=== PATIENT | female | born 1980 | race Caucasian/White ===

== ENCOUNTER 2022-12-04 08:02 | Emergency (ER) | payer OTHER, SELFPAY ==
--- NOTE | 2022-12-04 08:04 | ED.URI ---
HPI - URI/Sore Throat General Chief Complaint: Upper Respiratory Infection Stated Complaint: Sore Throat Time Seen by Provider: 12/04/22 08:04 Source: patient Mode of arrival: ambulatory Limitations: no limitations History of Present Illness HPI Narrative: Is a 42-year-old female who presents with fevers and sore throat since yesterday. States her temperature at home was 102.3. Has been alternating tylenol and aleve for fever and pain control, along with throat spray. States it has not helped with pain and fever has still been 101. Patient denies any congestion, cough, SOB, runny nose and ear pain. 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 Related Data Home Medications Medication Instructions Recorded Confirmed norgestrel 0.3 mg-ethinyl 1 tablet PO DAILY 12/04/22 12/04/22 estradiol 30 mcg tablet (Alhaji (28)) Allergies Allergy/AdvReac Type Severity Reaction Status Date / Time No Known Allergies Allergy Verified 12/04/22 08:07 Review of Systems Review of Systems: All systems reviewed & are unremarkable except as noted in HPI and below Constitutional: Constitutional: Denies body ache(s), Reports fever(s), Denies headache(s), Denies malaise and Denies weakness Eyes: Eyes: Denies loss of vision ENT: Denies otalgia, Denies headache(s), Denies nasal congestion, Denies sinus pain and Reports sore throat Cardiovascular: Cardiovascular: Denies chest pain, Denies irregular heart rhythm and Denies dyspnea Respiratory: Respiratory: Denies cough and Denies dyspnea Gastrointestinal: Gastrointestinal: Denies abdominal pain, Denies melena, Denies hematochezia, Denies diarrhea, Denies nausea and Denies vomiting Musculoskeletal: Musculoskeletal: Denies back pain, Denies myalgias and Denies arthralgias Integumentary/Breasts: Skin/Breast: Denies pruritus and Denies rash Neurologic: Denies headache(s), Denies loss of vision and Denies weakness Psychiatric: Psychiatric: Reports no additional psychiatric complaints [facility] Social History Social History (System 10/13/22 @ 15:07 by Srikanth Domínguez) Smoking status: Never smoker Alcohol intake: current Comments At time of signature, agree with nursing past medical, surgical, social and family history. There is no relevant family history pertinent to the presenting complaint. Exam Const: General: cooperative, healthy appearing, comfortable, no acute distress and well nourished Nutritional Appearance: well nourished Orientation/consciousness: patient oriented x3 Limitations: no limitations HENMT: Head: normal to inspection, normocephalic and atraumatic Ears: hearing grossly normal bilaterally, external ears normal and TM's normal bilaterally Face/Nose/Sinus: Normal external nose present, Normal nares present, Normal nasal mucous membranes and turbinates present, Normal septum present, normal facial exam, sinuses nontender and face symmetric Face and sinus: normal facial exam, sinuses nontender and face symmetric Mouth: Yes Normal oral and palatal mucosa present, Yes lip normal and Yes moist mucous membranes Teeth and gingiva: dentition normal Throat: uvula midline, abnormal tonsil bilateral erythema, exudates, hypertrophy 3+ and pitting, posterior oropharynx abnormal edema, erythema and exudates and postnasal drainage Eyes: General: appearance normal, both eyes and all related structures Alignment and Position: alignment normal and position normal Periorbital: periorbital findings normal Eyelids: eyelids normal Pupils: Equal, round and reactive pupils present Neck: Neck: normal visual inspection, full ROM and supple Chest: Chest palpation & inspection: normal inspection of the chest and normal palpation of entire chest wall Resp: Effort & Inspection: normal respiratory effort and able to speak in complete sentences Auscultation: clear to auscultation bilaterally, no crackles, no rales, no rhonchi and no wheezes Cardio: Rate: regular rate
[2022-12-04 08:19] VITALS: BP 131/76; PULSE 98; RESP 18; TEMP 36.5; O2SAT 98
== END 2022-12-04 08:32 | disposition home or self-care (01) ==
PROVIDERS: Emergency Provider Nurse Practitioner Family; PCP Physician Assistant Medical
DX: J02.0 Streptococcal pharyngitis (principal)
CPT/HCPCS: 87880; 99213; G0463

== ENCOUNTER 2023-12-22 12:36 | Outpatient (CLI) | payer OTHER, SELFPAY ==
--- NOTE | ~2023-12-22 | US_ITS ---
EXAMINATION: US pelvic complete w TV DATE: 12/22/2023 13:04 INDICATION: Complex ovarian cysts. Comparison:No prior studies for comparison. TECHNIQUE: Multiple transabdominal and endovaginal sonographic images of the pelvis performed. FINDINGS: The uterus measures 7.5 x 3.8 x 3.1 cm. The endometrial complex measures 2 mm. The right ovary measures 2.3 x 2 x 2.8 cm and the left ovary measures 4.2 x 3.8 x 3.8 cm. There is a hyperechoic mass of the left ovary measuring approximately 3.3 x 3.1 cm. There are small follicles in each ovary. Normal doppler signal in both ovaries. There is no free fluid in the pelvis. There are no abnormal masses seen on either side. IMPRESSION: 1. Hyperechoic left ovarian mass measuring 3.3 cm, possibly a dermoid. Recommend correlation with CT or MRI pelvis with contrast. Reviewed, dictated and finalized at location A. IMPRESSION: 1. Hyperechoic left ovarian mass measuring 3.3 cm, possibly a dermoid. Recommen d correlation with CT or MRI pelvis with contrast.
== END 2023-12-22 12:37 ==
PROVIDERS: PCP Internal Medicine Interventional Cardiology; Visit Provider Internal Medicine Interventional Cardiology
DX: N83.299 Other ovarian cyst, unspecified side (principal); N91.2 Amenorrhea, unspecified
CPT/HCPCS: 76830; 76856

== ENCOUNTER 2024-01-30 07:46 | Outpatient (CLI) | payer OTHER, SELFPAY ==
--- NOTE | ~2024-01-30 | MR_ITS ---
EXAMINATION: MR abdomen wo/w con DATE: 01/30/2024 09:35 INDICATION: Left ovarian mass. TECHNIQUE: Magnetic resonance imaging (MRI) of the abdomen was performed without and with 15 mL Multi Alexandrea intravenous contrast. COMPARISON: None. FINDINGS: In the right hepatic lobe, there is a 12 mm hyperenhancing mass. In the right hepatic lobe, there is a 2.3 cm hyperenhancing mass with interrupted peripheral puddling of contrast, consistent with a ana luisa ngioma. There are cysts in the liver measuring up to 5 mm. The gallbladder, spleen, pancreas, adrenal glands, and kidneys are normal. There are no dilated loops of bowel. There are no pathologically enl arged lymph nodes. There is no free intraperitoneal fluid. IMPRESSION: 1. 12 mm hyperenhancing liver mass. In the absence of known malignancy or chronic liver disease, this finding is likely a hemangioma or focal nodular hyperplasia. Reviewed, dictated and finalized at location A. IMPRESSION: 1. 12 mm hyperenhancing liver mass. In the absence of known malignancy or chron ic liver disease, this finding is likely a hemangioma or focal nodular hyperpla marie.
--- NOTE | ~2024-01-30 | MR_ITS ---
EXAMINATION: MR pelvis wo/w con DATE: 01/30/2024 09:34 INDICATION: Left ovarian mass. TECHNIQUE: Magnetic resonance imaging (MRI) of the pelvis was performed without and with 15 mL MultiH ance intravenous contrast. COMPARISON: Ultrasound 12/22/2023 FINDINGS: There are no dilated loops of bowel. The uterus is normal. The endometrial complex measures 5 mm in t hickness. The right ovary is normal. In the left ovary, there is a 3.5 cm mass containing fat, consis tent with a dermoid. There are no pathologically enlarged lymph nodes. There is no free intraperitone al fluid. IMPRESSION: 1. 3.5 cm dermoid in the left ovary. Reviewed, dictated and finalized at location A.
== END 2024-01-30 07:47 ==
PROVIDERS: PCP Family Medicine
DX: D27.1 Benign neoplasm of left ovary (principal); R16.0 Hepatomegaly, not elsewhere classified
CPT/HCPCS: 72197; 74183; A9577